=== PATIENT | female | born 2000 | race Caucasian/White ===

== ENCOUNTER → 2021-03-15 10:38 | Outpatient (BNVA) | payer BC, MEDICAID, SELFPAY | PROVIDERS: Visit Provider Obstetrics & Gynecology | DX: Z34.92 Encounter for supervision of normal pregnancy, unspecified, second trimester (principal) | CPT/HCPCS: 76805 ==

== ENCOUNTER → 2023-05-11 13:32 | Outpatient (BNVA) | payer BC, MEDICAID, SELFPAY | PROVIDERS: Visit Provider Nurse Practitioner Women's Health | DX: Z32.00 Encounter for pregnancy test, result unknown (principal); Z78.9 Other specified health status; N92.6 Irregular menstruation, unspecified | CPT/HCPCS: 81025; 84702 ==

== ENCOUNTER 2023-05-21 16:17 | Outpatient (CLI) | payer BC, MEDICAID, SELFPAY | END 2023-05-21 16:18 | disposition home or self-care (01) | PROVIDERS: Visit Provider Obstetrics & Gynecology | DX: O02.1 Missed abortion (principal) | CPT/HCPCS: 36415; 84702 ==

== ENCOUNTER → 2023-05-25 16:18 | Outpatient (BNVA) | payer BC, MEDICAID, SELFPAY | PROVIDERS: Visit Provider Obstetrics & Gynecology | DX: O03.9 Complete or unspecified spontaneous abortion without complication (principal) | CPT/HCPCS: 84702 ==

== ENCOUNTER → 2023-06-01 09:00 | Outpatient (BNVA) | payer BC, MEDICAID, SELFPAY | PROVIDERS: Visit Provider Nurse Practitioner Women's Health | DX: O03.9 Complete or unspecified spontaneous abortion without complication (principal) | CPT/HCPCS: 84702; 86900 ==

== ENCOUNTER → 2023-07-13 09:58 | Outpatient (BNVA) | payer BC, MEDICAID, SELFPAY | PROVIDERS: Visit Provider Nurse Practitioner Women's Health | DX: O03.9 Complete or unspecified spontaneous abortion without complication (principal); F43.21 Adjustment disorder with depressed mood; Z30.9 Encounter for contraceptive management, unspecified | CPT/HCPCS: 84702 ==

== ENCOUNTER → 2024-08-13 13:18 | Outpatient (BNVA) | payer BC, MEDICAID, SELFPAY | PROVIDERS: Visit Provider Nurse Practitioner Women's Health | DX: N91.2 Amenorrhea, unspecified (principal); N92.6 Irregular menstruation, unspecified | CPT/HCPCS: 81025 ==

== ENCOUNTER → 2024-08-25 08:05 | Outpatient (BNVA) | payer BC, MEDICAID, SELFPAY | PROVIDERS: Visit Provider Nurse Practitioner Women's Health | DX: Z34.90 Encounter for supervision of normal pregnancy, unspecified, unspecified trimester (principal) | CPT/HCPCS: 76801 ==

== ENCOUNTER → 2024-09-16 08:05 | Outpatient (BNVA) | payer BC, MEDICAID, SELFPAY | PROVIDERS: Visit Provider Nurse Practitioner Women's Health | DX: Z34.80 Encounter for supervision of other normal pregnancy, unspecified trimester (principal) | CPT/HCPCS: 80307; 82950; 84315; 85025; 86592; 86762; 86803; 86850; 86900; 87086; 87340; 87806 ==

== ENCOUNTER → 2024-09-19 08:00 | Outpatient (BNVA) | payer BC, MEDICAID, SELFPAY | PROVIDERS: Visit Provider Nurse Practitioner Women's Health | DX: Z34.80 Encounter for supervision of other normal pregnancy, unspecified trimester | CPT/HCPCS: 82951; 82952 ==

== ENCOUNTER → 2024-09-25 11:10 | Outpatient (BNVA) | payer BC, MEDICAID, SELFPAY | PROVIDERS: Visit Provider Obstetrics & Gynecology | DX: Z34.90 Encounter for supervision of normal pregnancy, unspecified, unspecified trimester; Z34.80 Encounter for supervision of other normal pregnancy, unspecified trimester; Z86.32 Personal history of gestational diabetes | CPT/HCPCS: 84315; 87491; 87591; 87624; 87661 ==

== ENCOUNTER → 2024-10-09 10:02 | Outpatient (BNVA) | payer BC, MEDICAID, SELFPAY | PROVIDERS: Visit Provider Nurse Practitioner Women's Health | DX: Z34.82 Encounter for supervision of other normal pregnancy, second trimester (principal) | CPT/HCPCS: 82105; 84315 ==

== ENCOUNTER → 2024-11-13 14:19 | Outpatient (BNVA) | payer BC, MEDICAID, SELFPAY | PROVIDERS: Visit Provider Obstetrics & Gynecology | DX: Z34.90 Encounter for supervision of normal pregnancy, unspecified, unspecified trimester (principal) | CPT/HCPCS: 76805 ==

== ENCOUNTER → 2024-11-20 11:20 | Outpatient (BNVA) | payer BC, MEDICAID, SELFPAY | PROVIDERS: Visit Provider Obstetrics & Gynecology | DX: Z34.80 Encounter for supervision of other normal pregnancy, unspecified trimester (principal) | CPT/HCPCS: 84315 ==

== ENCOUNTER → 2024-12-03 09:53 | Outpatient (BNVA) | payer BC, MEDICAID, SELFPAY | PROVIDERS: Visit Provider Nurse Practitioner Women's Health | DX: Z34.80 Encounter for supervision of other normal pregnancy, unspecified trimester (principal) | CPT/HCPCS: 82950; 84315 ==

== ENCOUNTER → 2024-12-11 07:58 | Outpatient (BNVA) | payer BC, MEDICAID, SELFPAY | PROVIDERS: Visit Provider Nurse Practitioner Women's Health | DX: Z34.80 Encounter for supervision of other normal pregnancy, unspecified trimester (principal) | CPT/HCPCS: 76816 ==

== ENCOUNTER → 2024-12-31 10:07 | Outpatient (BNVA) | payer BC, MEDICAID, SELFPAY | PROVIDERS: Visit Provider Nurse Practitioner Women's Health | DX: O09.299 Supervision of pregnancy with other poor reproductive or obstetric history, unspecified trimester (principal); Z86.32 Personal history of gestational diabetes; O26.899 Other specified pregnancy related conditions, unspecified trimester; R51.9 Headache, unspecified; O99.611 Diseases of the digestive system complicating pregnancy, first trimester; K59.00 Constipation, unspecified | CPT/HCPCS: 84315; 85025 ==

== ENCOUNTER → 2025-01-15 11:07 | Outpatient (BNVA) | payer BC, MEDICAID, SELFPAY | PROVIDERS: Visit Provider Nurse Practitioner Women's Health | DX: O09.299 Supervision of pregnancy with other poor reproductive or obstetric history, unspecified trimester (principal); Z86.32 Personal history of gestational diabetes | CPT/HCPCS: 84315 ==

== ENCOUNTER → 2025-01-29 08:39 | Outpatient (BNVA) | payer BC, MEDICAID, SELFPAY | PROVIDERS: Visit Provider Nurse Practitioner Women's Health | DX: Z34.83 Encounter for supervision of other normal pregnancy, third trimester (principal) | CPT/HCPCS: 84315 ==

== ENCOUNTER → 2025-02-12 07:59 | Outpatient (BNVA) | payer BC, MEDICAID, SELFPAY | PROVIDERS: Visit Provider Nurse Practitioner Women's Health | DX: O09.299 Supervision of pregnancy with other poor reproductive or obstetric history, unspecified trimester (principal); Z86.32 Personal history of gestational diabetes | CPT/HCPCS: 82962; 84315 ==

== ENCOUNTER → 2025-02-26 10:02 | Outpatient (BNVA) | payer BC, MEDICAID, SELFPAY | PROVIDERS: Visit Provider Nurse Practitioner Women's Health | DX: O09.299 Supervision of pregnancy with other poor reproductive or obstetric history, unspecified trimester (principal); Z86.32 Personal history of gestational diabetes | CPT/HCPCS: 84315; 87081 ==

== ENCOUNTER → 2025-03-05 07:50 | Outpatient (BNVA) | payer BC, MEDICAID, SELFPAY | PROVIDERS: Visit Provider Nurse Practitioner Women's Health | DX: Z34.80 Encounter for supervision of other normal pregnancy, unspecified trimester (principal) | CPT/HCPCS: 84315 ==

== ENCOUNTER → 2025-03-12 09:30 | Outpatient (BNVA) | payer BC, MEDICAID, SELFPAY | PROVIDERS: Visit Provider Nurse Practitioner Women's Health | DX: Z36.9 Encounter for antenatal screening, unspecified (principal); Z34.80 Encounter for supervision of other normal pregnancy, unspecified trimester | CPT/HCPCS: 76815; 84315 ==

== ENCOUNTER → 2025-03-19 10:23 | Outpatient (BNVA) | payer BC, MEDICAID, SELFPAY | PROVIDERS: Visit Provider Obstetrics & Gynecology | DX: O99.820 Streptococcus B carrier state complicating pregnancy (principal) | CPT/HCPCS: 84315 ==

== ENCOUNTER 2025-03-22 06:07 | Inpatient (IN) | payer BC, MEDICAID, SELFPAY ==
[2025-03-22] VITALS (30 sets, daily range): BP systolic 90–175; BP diastolic 53–89; PULSE 68–110; RESP 15–16; TEMP 36.8–36.9; O2SAT 97–99; BMI 33.0
[2025-03-22 05:52] LABS: Hematocrit 38.1 % (36-47); Hemoglobin 12.50 g/dL (11.27-16.99); Mean Corpuscular HGB Conc 32.8 g/dL (30-55); Mean Corpuscular Hemoglobin 27.0 pg (27-33); Mean Corpuscular Volume 82.3 fl (85-98); Nucleated Red Blood Cells % 0 %; Platelet Count 200 10^3/cmm (157-399); Red Blood Count 4.63 10^6/uL (3.85-5.65); White Blood Count 6.77 10^3/uL (3.29-11.43)
[2025-03-22] MEDS: penicillin g potassium 5,000,000 UNIT in sodium chloride 0.9% (100 ml) 100 ML 100 UNIT IV (07:05)
[2025-03-22] MEDS: oxytocin 30 UNIT/500 ML BAG 600 UNIT IV (08:14)
[2025-03-22] MEDS: lidocaine 2% INJ 20 mL INJECTION (08:26)
--- NOTE | 2025-03-22 08:56 | PM.OBGYHP ---
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 Bryant is a 25 year old established patient with LMP of 06/18/24, ANNEMARIE 03/23/2025 based on LMP and consistent with 10 week sonogram, placing her at 39-6/7 weeks today. CC of cyclic pelvic pain getting worst with time and closer together. Denies VB or LOF. GBS+ with no PNC allergy., RH pos BG. Past Ob Hx of GDM, current screen negative. Present Details : 6 Para: 3 Obstetrical complications: other (GBS+ ) Labs Rubella: Immune RPR: Negative GBS: Positive Review of Systems Const: Denies: fever(s) Eyes: Denies: floaters Card: Denies: swelling of feet/ankles GI: Denies: abdominal pain, nausea, vomiting, heartburn or constipation : Reports: other (+ contractions/no leaking fluid ); Denies: dysuria, vaginal bleeding or vaginal discharge Musc: Denies: back pain or muscle cramps Neuro: Denies: headache(s) Psych: Denies: anxiety or depression Medications/Allergies Home Medications ?Medication ?Instructions ?Recorded ?Confirmed ?Last Taken ?Type PNV 153-FA 400 mcg-om3 35 mg-dha tab PO DAILY 08/13/24 03/19/25 Unknown History 25 mg-epa 5 mg-fish oil chew tablet ( Gummies) docusate sodium 100 mg capsule 100 mg PO BID #60 caps 09/16/24 03/22/25 Unknown Rx Allergies Allergy/AdvReac Type Severity Reaction Status Date / Time No Known Allergies Allergy Verified 03/22/25 04:37 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 Surgical History No pertinent past surgical history Family History Family/Other Breast cancer maternal great aunt Thyroid disease maternal great aunt Grandfather Colon cancer maternal Prostate cancer maternal Stroke paternal Heart disease paternal Hyperlipidemia maternal Hypertension paternal maternal Diabetes maternal Mother Hyperlipidemia Hypertension Diabetes Father Hyperlipidemia Hypertension Diabetes Grandmother Hyperlipidemia maternal paternal Hypertension paternal maternal Diabetes maternal Thyroid disease maternal Sister Thyroid disease and paternal half sister Denies family history of Ovarian cancer Uterine cancer Social History Smoking and tobacco/nicotine status: former use of tobacco/nicotine History History History 6 Term 3 0 Miscarriages/Ectopic 2 Living Children 3 Care 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 Estimated Delivery Date Method Current WG Current Estimate 03/25/25 LMP (Certain) 39w 5d Other Estimates 03/23/25 Ultrasound #1 40w 0d Specific Issues/Plans hx GDM- early gct at 12 wks 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; noted during screen at 36 ---- prophylaxis in l/d HEADACHES VERICOSE VEINS Vitals/I&O/Wt Last Vital Signs Pulse 81 03/22/25 08:26 BP 122/59 03/22/25 08:26 O2 Del Method Room Air 03/22/25 05:41 03/21/25 03/22/25 03/22/25 22:59 06:59 14:59 Intake Total 360.250 / 360.250 Balance 360.250 / 360.250 Weight last 48 hrs Weight 205 lb Weight 205 lb Data 03/22/25 20:00 Results Labs OB ([facility]): Obstetrics US 03/12/25 Blood Type A Positive 03/22/25 Antibody Screen Negative 03/22/25 Hct, (36-47) 30.9 % L 03/22/25 Hgb, (11.27-16.99) 10.20 g/dL L 03/22/25 Rho(D) Type Rh positive 03/22/25 Plt Count, (157-399) 169 10^3/cmm 03/22/25 Hep Bs Antigen, (Nonreactive) Non-reactive 09/16/24 Hepatitis C Antibody, (Nonreactive) Non-reactive 09/16/24 Rubella IgG Antibody, (0.0-10.0) 30.5 IU/mL H 09/16/24 RPR, (Nonreactive) Nonreactive 09/16/24 HIV 1&2 Ab & HIV 1 Ag, (Non-Reactiv) Non-reactive 09/16/24 Glucose 1 Hr 50 gm, (85-140) 107 mg/dL 12/03/24 Gest Glucose Tolerance mg/dL 09/19/24 Ser , Semi-Qnt 1.00 mIU/mL 07/13/23 HCG, Qual, (Negative) Positive H 08/13/24 Urine Opiates Screen, (Negative) Negative ng/mL 09/16/24 Ur Barbiturates Screen, (Negative) Negative ng/mL 09/16/24 Ur Phencyclidine Scrn, (Negative) Negative ng/mL 09/16/24 Ur Amphetamines Screen, (Negative) Negative ng/mL 09/16/24 U Benzodiazepines Scrn, (Negative) Negative ng/mL 09/16/24 Urine Cocaine Screen, (Negative) Negative ng/mL 09/16/24 U Marijuana (THC) Screen, (Negative) Negative ng/mL 09/16/24 Micro Urine Specimen 09/16/24 Pap Smear Interpret See note 09/25/24 A&P Assessment and plan 1. History of gestational diabetes in prior , currently : 2. , delivered: 3. Normal vaginal delivery: Plan: A/P: Term in multiparous 25yo, having labor pain, rissa q 3-7min with reassuring tracing(no decels). Admit to L&D monitoring Notify anesthesia if epidural requested Anticipate vag delivery NPO except ice chips IV ? D5LR at 125 cc/hr CBC, T&S, RPR See Orders PDMP PDMP Reviewed: Not Reviewed Attestations Medical Necessity Statement*: In summary, in-patient admission and treatment is medically necessary to effectively address the patient?s health condition and improve their overall well-being. Coding Level of Care Code Acute Code for Chg Fwd Diagnoses History of gestational diabetes in prior , currently O09.299; Z86.32 , delivered O80 Normal vaginal delivery O80
--- NOTE | 2025-03-22 09:45 | PM.DELIVERY ---
Delivery Note: Date of delivery: March 22, 2025 Pre-delivery diagnoses: 39wk GBS positive Hx of GDM Post-delivery diagnoses: Term delivered Procedure: 2nd degree vaginal repair Patient is a 25year-old , admitted at 39 weeks gestation for spontaneous labor. Cervix was 5 cm dilated, 90% effaced, and head at +1 station upon admission. Labor progressed well, with cervical dilation reaching 10 cm and the head descending to +2 station. Patient received no epidural . The rest of the body followed without difficulty. The baby is a healthy male, weighing 7 lbs, with scores of 9 at 1 minute and 9 at 5 minutes. After one minute of delayed cord clamping the placenta was delivered spontaneously and intact. Estimated blood loss was 325 mL. The patient tolerated the procedure well and is currently stable in the recovery room. Delivering Physician: Ramya Findings: 325ml Pre-Delivery Course: Uncomplicated Post-Delivery Status: Stable History History History 6 Term 3 0 Miscarriages/Ectopic 2 Living Children 3 A&P Assessment and plan 1. Supervision of other normal : 2. History of gestational diabetes in prior , currently : 3. , delivered: PDMP PDMP Reviewed: Not Reviewed Coding Level of Care Code Acute Code for Chg Fwd Diagnoses Supervision of other normal Z34.80 History of gestational diabetes in prior , currently O09.299; Z86.32 , delivered O80
[2025-03-22] MEDS: HYDROcodone-acetaminophen 5-325 mg Tablet PO (12:09)
[2025-03-22] MEDS: benzocaine-menthol 78 gm Canister 1 SPRAY TOPICAL (12:10)
--- NOTE | 2025-03-22 12:30 | PC.NURSE ---
Pt assisted up to the bathroom. Pt voided and then was assisted with kasey care. Dermaplast spray provided. Gown and pad changed and fresh ice pack placed at perineum. Pt assisted back into bed and pain medication provided.
--- NOTE | 2025-03-22 13:52 | PC.NURSE ---
moved to OB11 for routine stay
[2025-03-22 20:08] LABS: Hematocrit 30.9 % (36-47); Hemoglobin 10.20 g/dL (11.27-16.99); Mean Corpuscular HGB Conc 33.0 g/dL (30-55); Mean Corpuscular Hemoglobin 27.6 pg (27-33); Mean Corpuscular Volume 83.5 fl (85-98); Platelet Count 169 10^3/cmm (157-399); Red Blood Count 3.70 10^6/uL (3.85-5.65); White Blood Count 8.36 10^3/uL (3.29-11.43)
[2025-03-23 04:28] VITALS: BP 100/60; PULSE 76; RESP 15; TEMP 36.8; O2SAT 97
--- NOTE | 2025-03-23 07:49 | PM.OBGYDC ---
Discharge Providers FAMILY MEDICINE PHYSICIAN ASSISTANT Date of Admission: 03/22/25 06:07 Date of Discharge: 03/23/25 Attending Provider at Admission: Jevon Bui MD Attending Provider at Discharge: Jevon Bui MD Primary Care Provider: Jan Cade DO Diagnoses at Discharge Discharge Diagnosis 1. History of gestational diabetes in prior , currently : 2. , delivered: Reason for Visit Reason for Visit: painful ctx Hospital Course Hospital Course Vaginal delivery recovered, no complications Information Peripartum Data: Infant Delivery Method: Vaginal Laceration description: Vaginal - 2nd Degree complications: none : 1: Gender: Male Physical Exam Const: COMMON NORMALS: no acute distress and patient oriented x3; limitations (pelvic rest 6wks) ORIENTATION/CONSCIOUSNESS: Yes oriented to person Extremity: GENERAL: No calf tenderness, No cyanosis, No palpable cord and Yes pulses abnormal Neuro: COMMON NORMALS: patient oriented x3 SENSORIUM/ORIENTATION: Yes oriented to person History History History 6 Term 3 0 Miscarriages/Ectopic 2 Living Children 3 Discharge Data Studies Completed and Pending Laboratory Results WBC 8.36 10^3/uL (3.29-11.43) 03/22/25 20:00 RBC 3.70 10^6/uL (3.85-5.65) L 03/22/25 20:00 Hgb 10.20 g/dL (11.27-16.99) L 03/22/25 20:00 Hct 30.9 % (36-47) L 03/22/25 20:00 MCV 83.5 fl (85-98) L 03/22/25 20:00 MCH 27.6 pg (27-33) 03/22/25 20:00 MCHC 33.0 g/dL (30-55) 03/22/25 20:00 RDW 14.1 % (12.1-15.1) 03/22/25 20:00 Plt Count 169 10^3/cmm (157-399) 03/22/25 20:00 MPV 10.7 fL (7.4-10.4) H 03/22/25 20:00 Neut % (Auto) 67.3 % 03/22/25 05:45 Lymph % (Auto) 22.7 % 03/22/25 05:45 [place] % (Auto) 8.3 % 03/22/25 05:45 Eos % (Auto) 1.0 % 03/22/25 05:45 Baso % (Auto) 0.3 % 03/22/25 05:45 Neut # (Auto) 4.55 10^3/uL (1.8-7.7) 03/22/25 05:45 Lymph # (Auto) 1.5 10^3/uL (0.8-4.8) 03/22/25 05:45 [place] # (Auto) 0.6 10^3/uL (0.2-0.9) 03/22/25 05:45 Eos # (Auto) 0.1 10^3/uL (0.0-0.8) 03/22/25 05:45 Baso # (Auto) 0.0 10^3/uL (0.0-0.1) 03/22/25 05:45 Nucleated RBC % (auto) 0 % 03/22/25 05:45 Nucleated RBCs # 0.0 /100WBC 03/22/25 05:45 Blood Type A Positive 03/22/25 05:45 Rho(D) Type Rh positive 03/22/25 05:45 Antibody Screen Negative 03/22/25 05:45 Vitals Last Vital Signs Temp 98.3 F 03/23/25 04:28 Pulse 76 03/23/25 04:28 Resp 15 03/23/25 04:28 BP 100/60 03/23/25 04:28 Pulse Ox 97 03/23/25 04:28 O2 Del Method Room Air 03/23/25 04:28 Results Labs OB ([facility]): Obstetrics US 03/12/25 Blood Type A Positive 03/22/25 Antibody Screen Negative 03/22/25 Hct, (36-47) 30.9 % L 03/22/25 Hgb, (11.27-16.99) 10.20 g/dL L 03/22/25 Rho(D) Type Rh positive 03/22/25 Plt Count, (157-399) 169 10^3/cmm 03/22/25 Hep Bs Antigen, (Nonreactive) Non-reactive 09/16/24 Hepatitis C Antibody, (Nonreactive) Non-reactive 09/16/24 Rubella IgG Antibody, (0.0-10.0) 30.5 IU/mL H 09/16/24 RPR, (Nonreactive) Nonreactive 09/16/24 HIV 1&2 Ab & HIV 1 Ag, (Non-Reactiv) Non-reactive 09/16/24 Glucose 1 Hr 50 gm, (85-140) 107 mg/dL 12/03/24 Gest Glucose Tolerance mg/dL 09/19/24 Ser , Semi-Qnt 1.00 mIU/mL 07/13/23 HCG, Qual, (Negative) Positive H 08/13/24 Urine Opiates Screen, (Negative) Negative ng/mL 09/16/24 Ur Barbiturates Screen, (Negative) Negative ng/mL 09/16/24 Ur Phencyclidine Scrn, (Negative) Negative ng/mL 09/16/24 Ur Amphetamines Screen, (Negative) Negative ng/mL 09/16/24 U Benzodiazepines Scrn, (Negative) Negative ng/mL 09/16/24 Urine Cocaine Screen, (Negative) Negative ng/mL 09/16/24 U Marijuana (THC) Screen, (Negative) Negative ng/mL 09/16/24 Micro Urine Specimen 09/16/24 Pap Smear Interpret See note 09/25/24 Discharge Plan Discharge Patient Disposition: Home Condition: Stable Prescriptions: No Action Gummies 400 mcg-35 mg- 25 mg-5 mg tablet,chewable PO DAILY docusate sodium 100 mg capsule 100 mg PO BID Qty: 60 3RF Discharge Order = DC NOW: Discharge Order (Routine); Ordered 03/23/25 Ordered By: Jevon Bui Referrals: Indigo Hamlin, JOSE [Nurse Practitioner, FAMILY MEDICINE PHYSICIAN ASSISTANT] Discharge Diet: Regular Discharge Activity: Increase activity as tolerated Patient Instructions: Depression (DC), Opioid Safety (DC), Preeclampsia and Eclampsia After Delivery (GEN), Hemorrhage (DC), OB Discharge Report, OB Food/Drug Interaction Guide, Opioid Safety, OB Home Care, OB Vaginal Deliveries - [facility], Patient Portal & Carol Instructions, Abnormal Bleeding Activity Restrictions/Additional Instructions: pelvic rest 6wks Assessment: ASSESSMENT: PPD#1 Pt doing well. Afebrile. No chills. VSS. Tolerating diet. control method: To be decided at 6wk f/u Uncomplicated course. today Plan of Treatment: PLAN: Routine home care. D/C today to f/u in 2 wks. Discharge Medications Ibuprofen 600mg po q6h prn pain. Max of 3 doses / 24hr. Discharge Attestations FAMILY MEDICINE PHYSICIAN ASSISTANT Time Spent in Discharge Care*: less than 30 min Coding Level of Care Code Acute Code for Chg Fwd Diagnoses History of gestational diabetes in prior , currently O09.299; Z86.32 , delivered O80
[2025-03-23] MEDS: benzocaine-menthol 78 gm Canister 1 SPRAY TOPICAL (09:49)
[2025-03-23] MEDS: PRENATAL VIT NO.130/IRON/FOLIC 1 EACH TABLET PO (09:49)
[2025-03-23 10:32] VITALS: BP 109/68; PULSE 80; RESP 16; TEMP 36.8; O2SAT 98
[2025-03-23 15:15] VITALS: BP 103/69; PULSE 84; RESP 14; TEMP 36.4; O2SAT 98
== END 2025-03-23 15:17 | disposition home or self-care (01) | DRG 807 ==
LOC: OPOB 06:08 → OBGYN 06:08
PROVIDERS: Admitting Provider Obstetrics & Gynecology; PCP Family Medicine; Visit Provider Obstetrics & Gynecology
DX: O99.824 Streptococcus B carrier state complicating childbirth (principal); Z37.0 Single live birth; O70.1 Second degree perineal laceration during delivery; Z3A.39 39 weeks gestation of pregnancy; Z87.891 Personal history of nicotine dependence
CPT/HCPCS: 12345; 36415; 59025; 59409; 85025; 85027; 86850; 86900; 99211; J2540; J2590; J7120; J7121; J9999